=== PATIENT | male | born 1980 | race Caucasian/White ===

== ENCOUNTER 2017-03-20 20:36 | Emergency (ER) | payer OTHER ==
[2017-03-20 20:39] VITALS: TEMP 98.1
--- NOTE | 2017-03-20 20:52 | EDPHY ---
H & P Smoking Status: Never smoked Time Seen by Provider: 03/20/17 20:45 HPI/ROS: CHIEF COMPLAINT: Allergic reaction HISTORY OF PRESENT ILLNESS: This patient is a 36 year old male with known nut allergy who presents to the Emergency Department with an acute allergic reaction to macadamia nuts he consumed accidentally at 2014ight. He reports chest tightness, facial swelling, and a diffuse pruritic rash presenting almost immediately following consumption of the nuts. He does not carry an epi-pen. He attempted to treat his allergic reaction with Benadryl without improvement to his symptoms. He denies fever, eye discharge, or any additional complaints. 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 (Karolina Berumen) Social History: at bedside. (Karolina Berumen) Physical Exam: General Appearance: Alert, pleasant and talkative, calm Eyes: Pupils equal and round, periorbital swelling ENT, Mouth: Mucous membranes moist, facial swelling, mild oral swelling Neck: Normal inspection, no stridor Respiratory: Lungs are clear to auscultation, no wheezing Cardiovascular: Regular rate and rhythm Neurological: A&O, nonfocal, normal gait Skin: erythema to anterior chest and face, no distinct hives Extremities: Swelling and erythema of both hands Psychiatric: Mood and affect normal (Karolina Berumen) Constitutional: Initial Vital Signs Temperature (C) 36.7 C 03/20/17 20:37 Heart Rate 104 H 03/20/17 20:37 Respiratory Rate 18 03/20/17 20:37 Blood Pressure 131/92 H 03/20/17 20:37 O2 Sat (%) 91 L 03/20/17 20:37 O2 Delivery Mode Room Air Allergies/Adverse Reactions: macadamia nut oil Allergy (Verified 03/20/17 20:39) Home Medications: Medication Instructions Recorded EPINEPHRINE [EPIPEN] 0.3 mg IM ONCE #2 syr 03/20/17 predniSONE 60 mg PO DAILY #9 tab 03/20/17 Medical Decision Making ED Course/Re-evaluation: This 36-year-old male presents with signs of acute anaphylaxis including periorbital and facial swelling, mild oral swelling, and complaints of chest tightness and shortness of breath. He reports a pruritic rash but there are no hives visualized on exam. He has a known allergy to macadamia nuts which he accidentally ingested approximately 45 minutes prior to arrival. Will proceed with protocol for treatment of acute anaphylaxis followed by serial evaluations. IV established. 25mg IV Benadryl, 125mg IV methylprednisolone, 50mg IV ranitidine, and 0.3mg IM epinephrine administered. Albuterol neb given. Better after meds. No chest constriction or SOB. Swelling subsiding. 2100: Care of this patient was transferred to Dr. Mac at change of shift. The plan is to observe him in the ED for 2 hours, then reassess. Likely discharge home at that time, prescriptions for epipen and prednisone written. (Karolina Berumen) Differential Diagnosis: includes though not limited to laryngeal edema, hypotension, hives, angioedema (Karolina Berumen) Other Provider: I assumed care of this patient from Dr. Berumen at 9:00 p.m.. He was re-evaluated by me at 11:00 p.m.. At that time he is resting comfortably. His lungs are clear to auscultation. There is no oral pharyngeal edema. He is swallowing easily. No facial or extremity edema. He feels comfortable returning home. We discussed the use of an EpiPen. (Chandni Mac) - Data Points Medications Given: Discontinued Medications Albuterol (Proventil Neb) 3 ml IH EDNOW ONE Stop: 03/20/17 20:54 Last Admin: 03/20/17 20:51 Dose: 3 ml Diphenhydramine HCl (Benadryl Injection) 25 mg IVP EDNOW ONE Stop: 03/20/17 20:54 Last Admin: 03/20/17 20:50 Dose: 25 mg Epinephrine HCl (Epinephrine) 0.3 mg IM EDNOW ONE Stop: 03/20/17 20:54 Last Admin: 03/20/17 20:48 Dose: 0.3 mg Methylprednisolone Sodium Succinate (Solu-Medrol) 125 mg IVP EDNOW ONE Stop: 03/20/17 20:54 Last Admin: 03/20/17 20:52 Dose: 125 mg Ranitidine HCl (Zantac) 50 mg IVP EDNOW ONE Stop: 03/20/17 20:54 Last Admin: 03/20/17 20:58 Dose: 50 mg Departure - Departure Disposition: Home, Routine, Self-Care Clinical Impression: Acute anaphylaxis Qualifiers: Encounter type: initial encounter Qualified Code(s): T78.2XXA - Anaphylactic shock, unspecified, initial encounter Condition: Good Instructions: Food Allergy (ED), Anaphylaxis (ED) Additional Instructions: 1. Take Claritin in the morning and Benadryl at bedtime for the next 3 days. 2. Avoid eating macadamia nuts. Carry an epi-pen with you in case of accidental ingestion. 3. Return to the Emergency Department with return of any of your symptoms, including: throat or facial swelling, difficulty breathing, chest pain or tightness, rash, or any additional serious concerns. Referrals: DR MINERVA [Other] - As per Instructions Prescriptions: EPINEPHRINE [EPIPEN] 0.3 mg IM ONCE #2 syr predniSONE 60 mg PO DAILY #9 tab
[2017-03-20] MEDS ORDERED: RANITIDINE 50 MG/2 ML VIAL IVP ONE (20:53)
[2017-03-20] MEDS ORDERED: RANITIDINE 50 MG/2 ML VIAL ONE (20:53)
[2017-03-20] MEDS ORDERED: methylPREDNISolone SOD SUCC 125 MG/2 ML VIAL ONE (20:53)
[2017-03-20] MEDS ORDERED: methylPREDNISolone SOD SUCC 125 MG/2 ML VIAL IVP ONE (20:53)
[2017-03-20] MEDS ORDERED: ALBUTEROL 3 ML DEYVIAL IH ONE (20:53)
[2017-03-20 22:19] VITALS: BP 122/86; PULSE 92; RESP 18; O2SAT 96
== END 2017-03-20 23:28 | disposition home or self-care (01) ==
DX: T78.2XXA Anaphylactic shock, unspecified, initial encounter (principal)
CPT/HCPCS: 96374; J0171; J1200; J2780